=== PATIENT | female | born 2000 | race Two or more races ===

== ENCOUNTER 2025-06-10 16:02 | Emergency (ER) | payer MEDICAID, SELFPAY ==
[2025-06-10 16:04] VITALS: BP 111/75; PULSE 110; RESP 18; TEMP 38.4; O2SAT 99
[2025-06-10 16:26] VITALS: PULSE 131; RESP 16; O2SAT 98; BMI 21.6
--- NOTE | 2025-06-10 16:59 | EDNOTE_ITS ---
<Statement entered by Corinne Cody MD - 06/13/25 17:55> As co-signing physician, I was present and available for consult prn. I concur with the plan and care as documented by the midlevel provider. Upper Respiratory Inf. RME/HPI General Chief Complaint: Nausea/Vomiting/Diarrhea Stated Complaint: ABD PAIN/N/V AFTER ATARTING ANTIBIOTICS FOR THROAT Time Seen by Provider: 06/10/25 16:09 Source: patient Arrival date/time: 06/10/25 16:02 24-year-old female with no known medical history presents to the emergency room with a chief complaint of difficulty swallowing, nausea, sore throat x 2 days Mode of arrival: ambulatory Limitations: no limitations Related Data Previous Rx's ?Medication ?Instructions ?Recorded amoxicillin 875 mg-potassium 1 tab PO BID 7 days #14 t abs 06/10/25 clavulanate 125 mg tablet ondansetron 4 mg disintegrating 4 mg PO Q8H PRN nausea and 06/10/25 tablet vomiting #14 tabs Allergies Allergy/AdvReac Type Severity Reaction Status Date / Time No Known Allergies Allergy Verified 06/10/25 16:30 Review of Systems Review of Systems Systems Reviewed: All systems reviewed, normal except as documented Constitutional Constitutional: Reports system reviewed and no additional complaints, except as documented, Denies fatigue, Denies fever(s), Denies headache(s) and Denies weakness Eyes Eyes: Reports system reviewed and no additional complaints, except as documented, Denies blurry vision and Denies change in vision ENT Ears, Nose, Mouth, and Throat: Reports system reviewed and no additional complaints, except as documented, Denies otalgia, Denies headache(s), Denies nasal congestion, Reports sore throat, Denies throat swelling and Denies vertigo Cardiovascular Cardiovascular: Reports system reviewed and no additional complaints, except as documented, Denies chest pain, Denies dyspnea and Denies dyspnea on exertion Respiratory Respiratory: Reports system reviewed and no additional complaints, except as documented, Denies chest congestion, Denies cough, Denies dyspnea, Denies dyspnea on exertion and Denies wheezing Gastrointestinal Gastrointestinal: Reports system reviewed and no additional complaints, except as documented, Denies abdominal pain, Denies cramping, Denies nausea and Denies vomiting Genitourinary Genitourinary: Reports system reviewed and no additional complaints, except as documented Musculoskeletal Musculoskeletal: Reports system reviewed and no additional complaints, except as documented and Denies back pain Integumentary/Breasts Skin/Breast: Reports system reviewed and no additional complaints, except as documented and Denies wounds Neurologic Neurologic: Reports system reviewed and no additional complaints, except as documented, Denies confusion, Denies headache(s), Denies lack of coordination, Denies vertigo and Denies weakness Psychiatric Psychiatric: Reports system reviewed and no additional complaints, except as documented, Denies anxiety, Denies confusion, Denies depression, Denies paranoia, Denies suicidal ideation and Denies tactile hallucinations Endocrine Endocrine: Reports system reviewed and no additional complaints, except as documented and Denies fatigue Hematologic/Lymphatic Hematologic/Lymphatic: Reports system reviewed and no additional complaints, except as documented and Denies lymphadenopathy Allergic/Immunologic Allergic/Immunologic: Reports system reviewed and no additional complaints, except as documented, Denies throat swelling, Denies urticaria and Denies wheezing Past Medical History Past Medical History CARDIAC: Negative Congestive Heart Failure RESPIRATORY: Negative Chronic Obstructive Pulmonary Disease (COPD) GENITOURINARY: Negative Renal Disease MUSCULOSKELETAL: Positive Musculoskeletal Disorders (misplaced disks in back) and Scoliosis ENDOCRINE: Negative Diabetes Mellitus Type 1 or Diabetes Mellitus Type 2 Social History SMOKING STATUS: Never smoker ED Exam General Limitations: Present no limitations General appearance: Present alert and in no apparent distress Head Head exam: Present atraumatic Eye Eye exam: Present normal appearance, PERRL and EOMI ENT ENT exam: Present normal exam, normal oropharynx and mucous membranes moist Expanded ENT Exam Mouth exam: Absent trismus Throat exam: Present tonsillar erythema and tonsillar exudate; Absent R peritonsillar mass, L peritonsillar mass or muffled voice Neck Neck exam: Present normal inspection, full ROM and trachea midline Chest Chest inspection: Present normal inspection and symmetric chest wall rise Respiratory Respiratory exam: Present normal lung sounds bilaterally Cardiovascular Cardiovascular exam: Present regular rate, normal rhythm and normal heart sounds Abdominal Exam Abdominal exam: Present soft and normal bowel sounds Extremities Exam Extremities exam: Present normal inspection and full ROM Back Exam Back exam: Present normal inspection and full ROM Neurological Exam Neurological exam: Present alert, oriented X3 and CN II-XII intact Psychiatric Psychiatric exam: Present normal affect and normal mood Skin Skin exam: Present warm, dry, intact and normal color Course Quality Measures none Orders Category Date Time Status Acetaminophen Tab [Tylenol ES Tab] Med 06/10/25 16:41 Discontinued 1,000 mg PO X1 ONE Dexamethasone Inj [Decadron Inj] Med 06/10/25 17:01 Discontinued 10 mg PO X1 ONE cefTRIAXone [Rocephin] 1,000 mg Med 06/10/25 16:42 Discontinued Lidocaine 1% 20 ml [Xylocaine 1% 20 ML] 2.1 ml IM X1 Vital Signs Vital signs: Vital Signs Temperature 101.1 F H 06/10/25 16:04 Pulse Rate 110 H 06/10/25 16:04 Respiratory Rate 18 06/10/25 16:04 Blood Pressure 111/75 06/10/25 16:04 Pulse Oximetry (%) 99 06/10/25 16:04 Oxygen Delivery Method Room Air 06/10/25 16:04 Upper Respiratory Infection MDM Narrative MDM Narrative:: 24-year-old female with no known medical history presents to the emergency room with a chief complaint of difficulty swallowing, nausea, sore throat x 2 days Patient is febrile at 101.1. Antipyretics were given with significant improvement Physical examination shows erythema to the posterior pharynx with exudates to the bilateral tonsillar pillars. There is no signs of any peritonsillar abscess. The patient has an open airway. There is no trismus. Findings are consistent with pharyngitis. Antibiotics and antipyretics were given with improvement to the patient's symptoms Patient was discharged and educated to follow-up with primary care provider in the next 24 to 48 hours and return to the emergency room for any evidence of worsening signs or symptoms Patient data External records reviewed:: [facility] previous records Clinical information provided by:: patient Social determinants that could affect healthcare access:: none Patient has the following chronic illnesses:: No chronic illness How is presenting disease/condition affected by chronic disease/condition?: no chronic disease Evaluation data The following diagnostics were reviewed and interpreted by me:: lab results and radiology exam(s) Lab and/or radiology exams considered but not ordered:: Labs and radiology exams considered and ordered Interpretation Summary: N/A Medications / Prescriptions Medications or Prescriptions considered but not ordered:: Medication given Medication administrations:: Medication Administration History Discontinued Medications Acetaminophen (Acetaminophen 500 Mg Tablet) 1,000 mg PO X1 ONE Stop: 06/10/25 16:42 Last Admin: 06/10/25 17:06 Dose: 1,000 mg Documented By: SYLVIA Ceftriaxone Sodium 1,000 mg/ (Lidocaine HCl 2.1 ml) 0 mg IM X1 ONE Stop: 06/10/25 16:43 Last Admin: 06/10/25 17:07 Dose: 2.1 mg Documented By: SYLVIA Dexamethasone Sodium Phosphate (Dexamethasone Sod Phos Inj 10 Mg/Ml Vial) 10 mg PO X1 ONE Stop: 06/10/25 17:02 Last Admin: 06/10/25 17:10 Dose: 10 mg Documented By: SYLVIA Medication given Consultations Consultation(s) initiated? (list below): No Diagnosis Upper Respiratory Differential Diagnosis: upper respiratory infection, viral infection, influenza and pharyngitis Most likely diagnosis given after review of the tests above:: Pharyngitis Admission Indicated Admission indicated?: not indicated Admission Request Was there a request for admission?: No Disposition Plan Disposition Plan: Discharge Discharge Attestation Discharge Attestation: The patient and all family members were given an opportunity to ask questions and understood the discharge instructions. Discharge instructions specifically effects, indications for sooner follow up or return to the emergency department, and the expected course of current diagnosis. Patient condition: Stable Discharge Plan Plan Patient Disposition: HOME (Self Care) Discharge Disposition comment: Stable Prescriptions/Referrals Prescriptions/Med Rec: New amoxicillin-pot clavulanate 875-125 mg tablet 1 tab PO BID 7 Days Qty: 14 0RF ondansetron 4 mg tablet,disintegrating 4 mg PO Q8H PRN (Reason: nausea and vomiting) Qty: 14 0RF Problem List Clinical Impression: Pharyngitis Patient/Caregiver Discharge Instructions Education Materials: Self-Care for Sore Throats Additional Instructions: Please follow-up with your primary care provider in the next 24 to 48 hours Physical examination showed exudates in the posterior pharynx. Findings are consistent with strep throat or pharyngitis Antibiotic sent to your pharmacy please pick them up and take them as indicated For any evidence of worsening signs or symptoms return to the emergency room immediately Print Language: Bruneian Stand Alone Forms: Mini Award Info., Work/School Release, Patient Portal Info Letter PA/PROGRAMMING SPECIALIST Supervising Physician PA/PROGRAMMING SPECIALIST Supervising Physician: Dr. Salgado
[2025-06-10 17:06] VITALS: TEMP 38.4
[2025-06-10] MEDS: ACETAMINOPHEN 500 MG TABLET 1000 MG PO (17:06)
[2025-06-10] MEDS: cefTRIAXone 1,000 MG, LIDOCAINE 1% 20 ML 2.1 ML IM (17:07)
[2025-06-10] MEDS: DEXAMETHASONE SOD PHOS INJ 10 MG/ML VIAL PO (17:10)
[2025-06-10 18:11] VITALS: BP 124/76; PULSE 77; RESP 18; TEMP 37.8; O2SAT 98
== END 2025-06-10 18:12 | disposition home or self-care (01) ==
PROVIDERS: Emergency Provider Nurse Practitioner Family
DX: J02.9 Acute pharyngitis, unspecified (principal)
CPT/HCPCS: 96372; 99281; J0696; J1100; J3490; A9270

== ENCOUNTER 2025-06-26 12:29 | Emergency (ER) | payer MEDICAID, SELFPAY ==
[2025-06-26 13:40] VITALS: BP 107/75; PULSE 68; RESP 19; TEMP 36.7; O2SAT 100; BMI 22.6
--- NOTE | 2025-06-26 13:43 | EKG_ITS ---
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
--- NOTE | 2025-06-26 13:44 | EDNOTE_ITS ---
ED General RME/HPI General Chief complaint: Urogenital-Female Stated complaint: PT FEELS LIKE SHE HAS A UTI Time Seen by Provider: 06/26/25 13:42 Arrival date/time: 06/26/25 12:29 CC: Painful urination low back pain lower abdominal cramping nausea vomiting fever chills HPI ongoing for the past 2 days. The patient has a history of urosepsis, and is concerned she has the same thing. Patient states her last temperature at home was 102.3, currently it is normal after patient took Tylenol 2 hours ago. Patient is awake alert in mild discomfort but not in any acute distress. Related Data Previous Rx's ?Medication ?Instructions ?Recorded ondansetron 4 mg disintegrating 4 mg PO Q8H PRN nausea and 06/10/25 tablet vomiting #14 tabs ciprofloxacin HCl 500 mg tablet 500 mg PO BID #14 tabs 06/26/25 (Cipro) Allergies Allergy/AdvReac Type Severity Reaction Status Date / Time No Known Allergies Allergy Verified 06/26/25 12:32 Review of Systems Review of Systems Narrative Review of Systems: GEN: + fever, no chills, no weight loss EYES: No discharge, no visual changes, no pain HEENT: No ear pain, no congestion, no sore throat PULM: No shortness of breath, no cough, no congestion CV: No chest pain, no dyspnea on exertion, no palpitations GI: No nausea, no vomiting, no diarrhea, no pain, no constipation : No frequency, no urgency, + dysuria, + flank pain MUSC/SKEL: No joint pain, + back pain SKIN: No rash PSYCH: No hallucinations, no depression HEME/LYMPH: No easy bleeding or bruising tendencies NEURO: No weakness, no headache ED Exam Narrative Physical exam: [General: In mild discomfort but not in any acute distress Head normocephalic HEENT: Within acceptable limits Neck is supple nontender Chest equal chest rise nontender to palpation Respiratory: Clear to auscultation no wheezes crackles or rubs CV: Rate rhythm is regular no murmurs rubs or clicks Abdomen is distended secondary to body habitus soft nontender no masses positive bowel sounds all 4 quadrants Back: Right CVA tenderness no left CVA tenderness, no spinous process tenderness from cervical spine thoracic and lumbar spine Skin: Intact no petechiae rash induration ulceration or crepitus Extremities: Moving all extremity against resistance cap refill less than 2 seconds neurosensory intact Neuro: Awake alert oriented x3 Glascow coma 15 no focal deficits] Course Course Course Narrative: Laboratory results indicate a UTI but not pyelonephritis, and there is no sepsis involved here patient has no significant leukocytosis. At this time I am giving the patient Rocephin and discharging home on Cipro. Patient advises to return in 3 days for recheck if pain is not abated or become worse. Patient is in agreement with this plan. Quality Measures none Orders Category Date Time Status EKG (ED ONLY) *Do not use* NOW Care 06/26/25 13:43 Completed Saline [Insert IV] NOW Care 06/26/25 13:43 Active EKG (ED Only) Stat Exams 06/26/25 13:43 Draft B-Type Natriuretic Peptide Stat Lab 06/26/25 14:05 Completed CBC Stat Lab 06/26/25 14:05 Completed Comprehensive Metabolic Panel Stat Lab 06/26/25 14:05 Completed Drug Screen,Urine Stat Lab 06/26/25 11:55 Completed HCG Qualitative,Urine Stat Lab 06/26/25 15:10 Ordered Lactic Acid [Lactate (Lactic Acid)] Stat Lab 06/26/25 14:05 Completed Lipase Stat Lab 06/26/25 14:05 Completed Magnesium Stat Lab 06/26/25 14:05 Completed Partial Thromboplastin Time Stat Lab 06/26/25 14:05 Completed Prothrombin Time with INR Stat Lab 06/26/25 14:05 Completed Urinalysis, C/S if Indicated Stat Lab 06/26/25 11:55 Completed Urine Culture Stat Lab 06/26/25 11:55 Received cefTRIAXone [Rocephin] 1,000 mg Med 06/26/25 15:09 Discontinued Lidocaine 1% Pf 5 ml [Xylocaine 1% Pf 5 ml] 2.1 ml IM X1 Vital Signs Vital signs: Vital Signs Temperature 98.0 F 06/26/25 13:40 Pulse Rate 68 06/26/25 13:40 Respiratory Rate 19 06/26/25 13:40 Blood Pressure 107/75 06/26/25 13:40 Pulse Oximetry (%) 100 06/26/25 13:40 Oxygen Delivery Method Room Air 06/26/25 13:40 Discharge Plan Plan Patient Disposition: HOME (Self Care) Patient condition on transfer: Stable Prescriptions/Referrals Prescriptions/Med Rec: New ciprofloxacin HCl [Cipro] 500 mg tablet 500 mg PO BID Qty: 14 0RF No Action ondansetron 4 mg tablet,disintegrating 4 mg PO Q8H PRN (Reason: nausea and vomiting) Qty: 14 0RF Referrals: No Primary/Family,Physician [Primary Care Provider] - In 1 week Problem List Clinical Impression: Urinary tract infection Patient/Caregiver Discharge Instructions Other Activity Instructions:: Take the medications as prescribed avoid all alcohol while taking the medications use ibuprofen or Tylenol intermittently as needed for pain. If there is a worsening of symptoms or symptoms are unchanged in 3 days return to the emergency room for reevaluation. Education Materials: ED CYSTITIS Female Adult Print Language: Romanian Stand Alone Forms: Mini Award Info., Patient Portal Info Letter, Work/School Release PA/NET DEVELOPER Supervising Physician PA/NET DEVELOPER Supervising Physician: Renny Macias ENP [facility] Clinical Information Provided by: patient Medical Records reviewed [facility] Meds/Rx considered, not ordered None Labs/Rad/Tests considered, not ordered None Chronic Illness/Social Conditions which may negatively complicate care or outcome(s)-explain: None or not applicable Labs Labs: interpreted by me Lab(s) Interpretation(s): CBC shows no acute leukocytosis anemia thrombocytopenia Coags within acceptable limits CMP shows no significant electrolyte imbalances renal impairment transaminitis or T. bili elevation Urine has 15 WBCs leukocyte esterase +1+ bacteria urine nitrite negative. UDS is negative Imaging Imaging interpretation: interpreted by me Medication Administration(s) Medication Administration History Discontinued Medications Ceftriaxone Sodium 1,000 mg/ (Lidocaine HCl 2.1 ml) 0 mg IM X1 ONE Stop: 06/26/25 15:10
[2025-06-26 14:23] LABS: Lactate (Lactic Acid) 0.8 mMol/L (0.4-2.0)
[2025-06-26 14:27] LABS: Collection Type, Urine Clean Catch
[2025-06-26 14:28] LABS: Basophils # (Auto) 0.0 Thou/mm3 (0.0-0.2); Basophils % (Auto) 1 % (0-2.5); Eosinophils # (Auto) 0.1 Thou/mm3 (0.0-0.5); Eosinophils % (Auto) 1 % (0-10); Hematocrit 37.2 % (36.0-46.0); Hemoglobin 12.4 g/dL (12.0-16.0); Immature Granulocytes Auto 0.02 Thou/mm3 (0.00-0.00); Lymphocytes # (Auto) 1.7 Thou/mm3 (1.0-4.8); Lymphocytes % (Auto) 30 % (10-50); Mean Corpuscular HGB Conc 33.3 g/dl (31.0-37.0); Mean Corpuscular Hemoglobin 30.5 pg (25.0-35.0); Mean Corpuscular Volume 92 fL (80-100); Monocytes # (Auto) 0.4 Thou/mm3 (0.0-0.8); Monocytes % (Auto) 6 % (0-12); Neutrophils # (Auto) 3.5 Thou/mm3 (1.8-7.7); Neutrophils % (Auto) 62 % (37-80); Nucleated Red Blood Cell # 0.00 Thou/mm3 (0.00-0.00); Nucleated Red Blood Cell % 0 /100 WBC (0); Platelet Count 282 Thou/mm3 (140-440); RDW Standard Deviation 42.3 fL (36.4-46.3); Red Blood Count 4.06 Miln/mm3 (4.00-5.20); White Blood Count 5.7 Thou/mm3 (3.6-11.0)
[2025-06-26 14:42] LABS: Bacteria,Urine 1+; Bilirubin,Urine Negative (Negative); Blood,Urine Negative (Negative); Clarity,Urine Clear (Clear/Hazy); Color,Urine Lt-Yellow (Lt Yel-Yel); Glucose, Urine Negative (Negative); Ketones,Urine Negative (Negative); Leukocyte Esterase,Urine Positive (Negative); Nitrite,Urine Negative (Negative); PH,Urine 6.0 (5.0-7.0); Protein,Urine Negative (Neg - Trace); RBC,Urine 2 /hpf (0-3); Specific Gravity,Urine 1.013 (1.001-1.035); Squamous Epithelial Cell,Urine 3 /hpf (0-5); Urobilinogen,Urine Negative mg/dL (0.0-1.0); WBC,Urine 15 /hpf (0-5)
[2025-06-26 14:45] LABS: INR 1.0 (0.9-1.3); Partial Thromboplastin Time 31.6 Seconds (22.0-36.0); Prothrombin Time 10.9 Seconds (9.0-12.2)
[2025-06-26 14:51] LABS: Culture Indicated,Urine Yes
[2025-06-26 14:55] LABS: B-Type Natriuretic Peptide 37 pg/mL (0-100)
[2025-06-26 14:55] LABS: Amphetamine/Methamp Scrn,U Negative (Negative); Barbiturate Screen,Urine Negative (Negative); Benzodiazepines Screen,Urine Negative (Negative); Benzoylecgonine Screen, Ur Negative (Negative); Fentanyl Screen,Urine Negative (Negative); Opiate Screen,Urine Negative (Negative); THC Screen,Urine Negative (Negative)
[2025-06-26 14:56] LABS: Albumin, Serum 4.9 gm/dL (3.5-5.0); Alkaline Phosphatase 58 U/L (46-116); Anion Gap 11 (7-16); Aspartate Amino Transferase 19 U/L (0-34); BUN/Creatinine Ratio 9 Ratio (12-20); Blood Urea Nitrogen 7 mg/dL (9-23); Calcium 9.3 mg/dL (8.3-10.6); Calcium (Corrected) 9.3 mg/dL (8.5-10.1); Carbon Dioxide 26.4 mMol/L (20.0-31.0); Chloride 105 mMol/L (98-107); Creatinine (Component) 0.8 mg/dL (0.6-1.3); Estimated Creatinine Clearance 100.6 mL/min (>60); Glucose 94 mg/dL (74-106); Lipase 24 U/L (12-53); Magnesium 1.9 mg/dL (1.6-2.6); Osmolality,Calculated 281 (275-295); Potassium 3.7 mMol/L (3.4-5.1); Sodium 142 mMol/L (136-145); eGFR > 60 See Note
[2025-06-26 15:07] LABS: Alanine Aminotransferase 8 U/L (10-49); Albumin/Globulin Ratio 1.8 (1.2-2.2); Bilirubin,Total 0.4 mg/dL (0.3-1.2); Globulin 2.7 gm/dL (2.3-3.5); Total Protein 7.6 gm/dL (5.7-8.2)
== END 2025-06-26 17:19 | disposition home or self-care (01) ==
PROVIDERS: Registered Nurse General Practice; Emergency Provider Emergency Medicine
DX: N39.0 Urinary tract infection, site not specified (principal)
CPT/HCPCS: 36415; 80053; 80307; 81001; 81025; 83605; 83690; 83735; 83880; 85025; 85610; 85730; 87077; 87086; 87186; 93005; 96372; 99283; J0696; J3490